=== PATIENT | female | born 1945 | race Caucasian/White ===

== ENCOUNTER 2019-03-02 11:00 | Outpatient (RCR) | payer MEDICARE, BC | END 2019-03-31 | disposition still patient (30) | LOC: PT | DX: G20 Parkinson's disease (principal) ==

== ENCOUNTER 2021-11-22 08:44 | Emergency (ER) | payer MEDICARE, BC ==
[2021-11-22 09:44] LABS: BASO # 0.02 K/mm3 (0.02-0.10); EOS # 0.11 K/mm3 (0.04-0.40); HEMATOCRIT 39.3 % (37.0-47.0); HEMOGLOBIN 12.6 g/dL (12.5-16.0); LYMPH# 1.84 K/mm3 (1.50-4.00); MEAN CELL VOLUME 89 fl (78-100); MEAN CORPUSCULAR HEMOGLOBIN 28 pg (27-31); MEAN CORPUSCULAR HGB CONC 32 g/dL (33-37); MEAN PLATELET VOLUME 10.1 fl (7.4-10.4); MONO # 0.61 K/mm3 (0.20-0.80); NEU # 3.06 K/mm3 (1.40-6.50); PLATELET COUNT 215 K/mm3 (130-400); RED BLOOD COUNT 4.44 M/mm3 (4.10-5.30); RED CELL DISTRIBUTION WIDTH 14.2 % (11.5-14.5); WHITE BLOOD COUNT 5.6 K/mm3 (4.8-10.8)
[2021-11-22 09:50] LABS: ALBUMIN 3.8 g/dL (3.4-4.8); POTASSIUM 3.7 mmol/L (3.5-5.1)
[2021-11-22 10:02] LABS: CALCIUM 9.4 mg/dL (8.3-10.5)
[2021-11-22 10:03] LABS: TOTAL PROTEIN 7.2 g/dL (6.2-8.1)
[2021-11-22 10:05] LABS: TOTAL BILIRUBIN 0.5 mg/dL (0.2-1.2)
[2021-11-22] MEDS ORDERED: OXYGEN NAS (13:58)
[2021-11-22 14:52] VITALS: BP 113/83
== END 2021-11-22 15:30 | disposition home or self-care (01) ==
LOC: ED 08:44
PROVIDERS: Nurse Practitioner
DX: R09.02 Hypoxemia (principal); R05.1 Acute cough; Z99.81 Dependence on supplemental oxygen; Z20.822 Contact with and (suspected) exposure to COVID-19

== ENCOUNTER → 2024-06-21 | Outpatient (REF) | payer MEDICARE, BC ==
[~2024-06-21] MED LIST: OXYGEN NAS
[2024-06-21 12:23] LABS: URINE APPEARANCE TURBID (CLEAR); URINE BILIRUBIN 1+ (NEGATIVE); URINE COLOR YELLOW (YELLOW); URINE GLUCOSE NEGATIVE (NEGATIVE); URINE KETONE NEGATIVE (NEGATIVE); URINE PROTEIN(semi-quant) TRACE (NEGATIVE)
[2024-06-21 12:24] LABS: URINE BLOOD NEGATIVE (NEGATIVE); URINE LEUKOCYTE ESTERASE 3+ (NEGATIVE); URINE MUCUS PRESENT (NOT PRESENT); URINE NITRATE NEGATIVE (NEGATIVE); URINE WBC >50 /hpf (0-3)
== END ==
LOC: LAB 12:00
PROVIDERS: Family Medicine
DX: R82.998 Other abnormal findings in urine (principal)